=== PATIENT | female | born 1950 | race Caucasian/White ===

== ENCOUNTER 2017-11-14 23:54 | Emergency (ER) | payer MEDICARE, MEDICAID ==
[~2017-11-14] VITALS: Ht 162.6 cm; Wt 49.0 kg
[~2017-11-14 23:54] MED LIST: ACET1TAB12 PO
[2017-11-15 00:19] VITALS: BP 146/94
== END 2017-11-15 00:20 ==
LOC: ER 23:54
DX: Z02.89 Encounter for other administrative examinations (principal); R07.89 Other chest pain; F15.90 Other stimulant use, unspecified, uncomplicated; Z59.0 Homelessness; Z56.0 Unemployment, unspecified; Z88.2 Allergy status to sulfonamides
CPT/HCPCS: 93005; 99283